=== PATIENT | female | born 1990 | race Two or more races ===

== ENCOUNTER 2022-04-16 09:18 | Emergency (ER) | payer OTHER ==
[~2022-04-16] VITALS: Ht 160 cm; Wt 57.6 kg
--- NOTE | 2022-04-16 09:50 | NUR ---
BIB [employer] [facility]. C/O HEADACHE SINCE LAST NIGHT. ALSO C/O "HIGH BP". [employer]INE OPERATOR. PT AMBULATED TO BED WITH STEADY GAIT. AAOX4. BREATHING EVEN AND UNLABORED. VSS. NO ACUTE DISTRESS NOTED. AWAITING MD ORDERS.
[2022-04-16] MEDS ORDERED: IBUPROFEN 400 MG TABLET ONE ×2 (10:25→10:35)
[2022-04-16] MEDS ORDERED: IBUPROFEN 400 MG TABLET PO ONE (10:30)
--- NOTE | 2022-04-16 11:11 | NUR ---
PATIENT TAKEN TO CT VIA [facility]
[2022-04-16] MEDS ORDERED: AMLO-213 PO (11:25)
[2022-04-16 11:28] LABS: CALCIUM, SERUM 8.5 mg/dL (8.5-10.1); CREATININE 0.8 mg/dL (0.6-1.3); POTASSIUM 4.2 mmol/L (3.5-5.1)
--- NOTE | 2022-04-16 11:46 | NUR ---
Patient discharged to [facility] UNIT# [id number] in stable condition. Written and verbal after care instructions given. Patient verbalizes understanding of instruction.
[2022-04-16 11:52] VITALS: BP 130/88
== END 2022-04-16 11:53 ==
LOC: ER 09:31
DX: R51.9 Headache, unspecified (principal); I10 Essential (primary) hypertension; Z79.899 Other long term (current) drug therapy
CPT/HCPCS: 36415; 70450-TC; 80048-TC; 84484-TC